=== PATIENT | male | born 1960 | race Hispanic/Latino ===

== ENCOUNTER 2018-03-12 09:28 | Emergency (ER) | payer MEDICAID ==
[2018-03-12 10:05] LABS: BASOPHILS % (AUTO) 0.5 % (0.0-5.0); EOSINOPHILS % (AUTO) 2.3 % (0.0-8.0); HEMATOCRIT 31.7 % (42-54); LYMPHOCYTES % (AUTO) 22.8 % (21.0-51.0); MEAN CORPUSCULAR HEMOGLOBIN 29.7 pg (27.0-33.0); MEAN CORPUSCULAR HGB CONC 32.8 g/dL (32.0-36.0); MEAN CORPUSCULAR VOLUME 90.6 fL (79-99); MONOCYTES % (AUTO) 7.9 % (3.0-13.0); NEUTROPHILS % (AUTO) 66.5 % (40.0-77.0); PLATELET COUNT (AUTO) 341 K/uL (130-400); RED CELL DISTRIBUTION WIDTH 13.7 % (11.0-15.5); WHITE BLOOD COUNT (AUTO) 7.7 K/uL (4.8-10.8)
[2018-03-12 10:17] LABS: CREATININE 1.1 mg/dL (0.5-1.5)
[2018-03-12 10:23] LABS: ALBUMIN 2.3 g/dL (3.5-5.0); BILIRUBIN,TOTAL 0.3 mg/dL (0.2-1.0); TOTAL PROTEIN, SERUM 6.7 g/dL (6.0-8.3)
[2018-03-12 10:29] LABS: APPEARANCE,URINE Clear (CLEAR); BILIRUBIN,URINE Negative (NEGATIVE); COLOR,URINE Yellow (YELLOW); GLUCOSE, URINE (UA) >=1000 mg/dL (NEGATIVE); KETONES,URINE Negative (NEGATIVE); LEUKOCYTE ESTERASE ,URINE Negative (NEGATIVE); NITRATE,URINE Negative (NEGATIVE); OCCULT BLOOD,URINE Negative (NEGATIVE); PROTEIN,URINE 300 (NEGATIVE); UROBILINOGEN,URINE 0.2 mg/dL (0.2-1.0)
[2018-03-12 10:32] LABS: B-TYPE NATRIURETIC PEPTIDE 354 pg/mL (0-100)
[2018-03-12 10:52] LABS: BACTERIA,URINE Rare /HPF (None Seen); RBC,URINE 0-1 /HPF (0-1); SQUAMOUS EPITHELIAL CELL,UR Rare /HPF (0-2); WBC,URINE 0-1 /HPF (0-1)
[2018-03-12] MEDS ORDERED: METOPROLOL TARTRATE 1 MG/ML 5ML VIAL IV ONE (11:50)
[2018-03-12] MEDS ORDERED: FUROSEMIDE 10 MG/ML 4ML VIAL ONE (11:53)
[2018-03-15] MEDS ORDERED: HYDR25TA PO (19:44)
[2018-03-15] MEDS ORDERED: INSLAN SQ (19:44)
[2018-03-15] MEDS ORDERED: SIMV20TA6 PO (19:44)
[2018-03-15] MEDS ORDERED: LISI10TA7 PO (19:44)
== END 2018-03-12 14:34 | disposition home or self-care (01) ==
LOC: EDH 09:28
DX: N13.39 Other hydronephrosis (principal); R60.0 Localized edema; R19.7 Diarrhea, unspecified; R29.6 Repeated falls; I10 Essential (primary) hypertension; E11.9 Type 2 diabetes mellitus without complications; E78.5 Hyperlipidemia, unspecified; Z98.890 Other specified postprocedural states; Z87.891 Personal history of nicotine dependence; Z79.4 Long term (current) use of insulin
CPT/HCPCS: 36415; 71045; 73562 ×2; 74176; 80053; 81001; 82550; 82948; 83880; 84484; 85025; 93005; 96374; 96375; 99284; J1940; J3490

== ENCOUNTER 2018-05-03 06:33 | Emergency (ER) | payer MEDICAID ==
[~2018-05-03 06:33] MED LIST: HYDR25TA PO; INSLAN SQ; LISI10TA7 PO; SIMV20TA6 PO; SULF1TAB3 PO
== END 2018-05-03 07:52 | disposition home or self-care (01) ==
LOC: EDH 06:33
DX: T83.038A Leakage of other urinary catheter, initial encounter (principal); I10 Essential (primary) hypertension; E11.9 Type 2 diabetes mellitus without complications; E78.5 Hyperlipidemia, unspecified; Z72.0 Tobacco use; Z79.4 Long term (current) use of insulin

== ENCOUNTER 2018-05-12 04:06 | Emergency (ER) | payer MEDICAID ==
[2018-05-12] MEDS ORDERED: KETOROLAC TROMETHAMINE 30MG/ML ONE (04:31)
[2018-05-12] MEDS ORDERED: LIDOCAINE 5% TOPICAL PATCH TP ONE (04:31)
[2018-05-12] MEDS ORDERED: CYCLOBENZAPRINE HCL 10 MG TABLET ONE (05:46)
[2018-05-12] MEDS ORDERED: LISINOPRIL 5 MG TABLET ONE (07:06)
== END 2018-05-12 08:04 | disposition home or self-care (01) ==
LOC: EDH 04:06
DX: S39.012A Strain of muscle, fascia and tendon of lower back, initial encounter (principal); I10 Essential (primary) hypertension; E78.5 Hyperlipidemia, unspecified; E11.9 Type 2 diabetes mellitus without complications; Z79.4 Long term (current) use of insulin; W18.39XA Other fall on same level, initial encounter; Y93.89 Activity, other specified; Y92.89 Other specified places as the place of occurrence of the external cause; Y99.8 Other external cause status
CPT/HCPCS: 72100; 96374; 99284; J1885

== ENCOUNTER 2018-06-21 05:30 | Emergency (ER) | payer MEDICAID | END 2018-06-21 06:01 | disposition home or self-care (01) | LOC: EDH 05:30 | DX: T83.038A Leakage of other urinary catheter, initial encounter (principal); I10 Essential (primary) hypertension; E78.5 Hyperlipidemia, unspecified; E11.9 Type 2 diabetes mellitus without complications; Z79.4 Long term (current) use of insulin; Y84.8 Other medical procedures as the cause of abnormal reaction of the patient, or of later complication, without mention of misadventure at the time of the procedure; Y92.89 Other specified places as the place of occurrence of the external cause ==

== ENCOUNTER 2018-09-13 18:07 | Emergency (ER) | payer MEDICAID | END 2018-09-13 19:28 | disposition home or self-care (01) | LOC: EDH 18:07 | DX: T83.038A Leakage of other urinary catheter, initial encounter (principal); E11.9 Type 2 diabetes mellitus without complications; E78.5 Hyperlipidemia, unspecified; I10 Essential (primary) hypertension; Z79.4 Long term (current) use of insulin; Y84.8 Other medical procedures as the cause of abnormal reaction of the patient, or of later complication, without mention of misadventure at the time of the procedure; Y92.89 Other specified places as the place of occurrence of the external cause | CPT/HCPCS: 51702 ==